=== PATIENT | male | born 2000 | race Caucasian/White ===

== ENCOUNTER 2020-10-21 15:54 | Outpatient (CLI) | payer OTHER ==
--- NOTE | 2020-10-21 16:10 | RAD ---
EXAM: XR Knee Rt 2 View PROVIDED CLINICAL HISTORY: Pain FINDINGS: There is no evidence for fracture or other acute osseous abnormality. Alignment appears anatomic. Milagros nt spaces appear preserved. Sequela of prior tibial tubercle apophysitis. IMPRESSION: No evidence for an acute osseous abnormality or significant arthropathy.
== END 2020-10-21 15:55 | disposition home or self-care (01) ==
LOC: BICRAD 15:54
PROVIDERS: ATTEND Internal Medicine
DX: Z02.71 Encounter for disability determination (principal)